=== PATIENT | female | born 1980 | race Caucasian/White ===

== ENCOUNTER 2017-01-20 13:54 | Emergency (ER) | payer MEDICAID, OTHER ==
[~2017-01-20] VITALS: Ht 162.6 cm; Wt 102.3 kg
[~2017-01-20 13:54] MED LIST: MECL25TA2 PO; ONDA4TAB35 PO; [UNRECOGNIZED DRUG - REMARK]
[2017-01-20 14:16] VITALS: Ht 162.6 cm; Wt 102.3 kg
[2017-01-20 16:48] LABS: URINE BLOOD (Dip) POC Negative (NEGATIVE)
[2017-01-20] MEDS ORDERED: PHEN-538 PO (17:16)
[2017-01-20] MEDS ORDERED: CEPH-443 PO (17:16)
--- NOTE | 2017-01-20 19:44 | ERD ---
ER Documentation Chief Complaint Date/Time DATE: 01/20/17 TIME: 19:41 Chief Complaint dysuria RLQ abd pain x 2 days HPI This is a 36-year-old female presenting to the emergency department complaining of left lower quadrant abdominal pain and painful urination for the past 2 days. Patient denies any fever. She denies any hematuria or vaginal discharge. Patient states her last menstrual period was about a couple weeks ago. Patient also complains of a lesion on her right eyelid with no pain inside the eye or on the outer eye. ROS All systems reviewed and are negative except as per history of present illness. Medications Home Meds Active Scripts Phenazopyridine Hcl* (Pyridium*) 200 Mg Tab, 200 MG PO TID Y for URINARY PAIN, # 10 TAB Prov:URIEL KRAUSE PA-C 01/20/17 Cephalexin* (Keflex*) 500 Mg Capsule, 500 MG PO BID for 10 Days, CAP Prov:URIEL KRAUSE PA-C 01/20/17 Meclizine Hcl* (Antivert*) 25 Mg Tablet, 25 MG PO Q6H Y for dizziness, #20 TAB Prov:JOSH WARREN MD 08/27/15 Ondansetron Hcl* (Zofran* ODT) 4 mg -ODT Tab.disper, 4 MG PO Q6 Y for NAUSEA AND /OR VOMITING, #30 TAB Prov:JOSH WARREN MD 08/27/15 Reported Medications [no new meds] No Conflict Check 06/28/13 Allergies Allergies: Coded Allergies: No Known Allergy (Unverified , 08/27/15) PMhx/Soc Medical and Surgical Hx: pt denies Medical Hx History of Surgery: Yes (C SECTION X4) Anesthesia Reaction: No Hx Neurological Disorder: No Hx Respiratory Disorders: No Hx Cardiac Disorders: No Hx Psychiatric Problems: No Hx Miscellaneous Medical Probl: No Hx Alcohol Use: No Hx Substance Use: No Hx Tobacco Use: No Physical Exam Vitals Vital Signs Date Time Temp Pulse Resp B/P Pulse Ox O2 Delivery O2 Flow Rate FiO2 01/20/17 14:16 98.3 87 20 119/75 98 Physical Exam GENERAL: well-developed/well-nourished, in no apparent distress, non-toxic appearing HENT: NC/AT, moist mucous membranes EYES: Conjunctiva normal, pupils equal reactive to light, extra walk was intact Small lesion noted on the upper eyelid region with no erythema or induration NECK: Supple, no lymphadenopathy PULM: CTA bilaterally, no rales, rhonchi, or wheezing heard CV: Normal S1S2, RRR, good capillary refill GI: Soft, non-distended, tender to palpation left pelvic region Normal bowel sounds, no masses or organomegaly felt on exam No gross peritonitis, no bruits Negative Rovsing, negative Aquino, negative McBurney's point, Negative CVAT BACK: No masses EXT: No clubbing, cyanosis, or edema NEURO: Alert and Orientated SKIN: Intact, normal turgor PSYCH: Normal mood and mentation Results 24 hrs Laboratory Tests Test 01/20/17 16:47 Bedside Urine Blood Negative Bedside Urine Glucose (UA) Negative Bedside Urine Ketones (LAB) Negative Bedside Urine Leukocyte Esterase (L 1+ Bedside Urine Nitrite (LAB) Positive Bedside Urine Protein (LAB) Negative Bedside Urine pH (LAB) 6.5 Procedures/MDM This is a 36-year-old female presenting to the emergency department complaining of left pelvic pain and dysuria for the past 2 days which is likely due to urinary tract infection. On examination patient did not have any CVA tenderness , she had no fever she appears well and did not seem to be in significant pain. Low suspicion for nephrolithiasis or pyelonephritis. Patient also is complaining of a lesion on her upper eyelid which is likely due to a hordeolum versus chalazion, did not seem to be any evidence of periorbital or orbital tinnitus. No evidence of conjunctivitis. Patient should be benefiting from warm compresses at this time topical antibiotics are necessary. However I discussed the patient to return the ER for any worsening signs or symptoms are not improving as expected. Patient understands and agrees with this plan; prescription for Keflex was given. Departure Diagnosis: Primary Impression: Dysuria Condition: Stable Patient Instructions: Understanding Urinary Tract Infections (UTIs), When Your Child Has a Stye Referrals: NO PRIMARY,CARE PHYSICIAN (PCP) Additional Instructions: Visite a bhat moa granger para un EXAMEN.Regrese a estas instalaciones si no se mejora allie esperbamos o allie le dijimos. Nichols toda la medicina gabriella y allie se le indic. Regrese a estas instalaciones si no se mejora allie esperbamos o allie le dijimos. URIEL KRAUSE PA-C Jan 20, 2017 19:44
== END 2017-01-20 17:31 | disposition home or self-care (01) ==
LOC: FTE 13:54
DX: R30.0 Dysuria (principal); R10.2 Pelvic and perineal pain
CPT/HCPCS: 81003; 99283

== ENCOUNTER 2017-09-02 09:11 | Emergency (ER) | payer MEDICAID ==
[~2017-09-02] VITALS: Ht 152.4 cm; Wt 107.5 kg
[~2017-09-02 09:11] MED LIST changes: +CEPH-443 PO; +PHEN-538 PO
[2017-09-02 09:23] VITALS: Ht 152.4 cm; Wt 107.5 kg
[2017-09-02] MEDS ORDERED: KETOROLAC 30 MG INJ IV STA (09:53)
[2017-09-02] MEDS ORDERED: SOD CHLORIDE 0.9% 1,000 ML IV STA (09:53)
[2017-09-02 10:14] LABS: URINE BLOOD (Dip) POC 2+ (NEGATIVE)
[2017-09-02 10:20] LABS: BASOPHILS % 0.3 % (0.0-2.0); EOSINOPHILS # 0.2 10^3/ul (0.0-0.5); EOSINOPHILS % 2.3 % (0.0-7.0); HEMATOCRIT 32.8 % (37.0-47.0); HEMOGLOBIN 11.1 g/dl (12.0-16.0); LYMPHOCYTES # 1.8 10^3/ul (0.8-2.9); LYMPHOCYTES % 26.9 % (15.0-51.0); MEAN CORPUSCULAR HEMOGLOBIN 27.2 pg (29.0-33.0); MEAN CORPUSCULAR HGB CONC 33.8 g/dl (32.0-37.0); MEAN CORPUSCULAR VOLUME 80.4 fl (82.0-101.0); MEAN PLATELET VOLUME 9.6 fl (7.4-10.4); MONOCYTE # 0.4 10^3/ul (0.3-0.9); MONOCYTES % 6.7 % (0.0-11.0); NEUTROPHIL # 4.2 10^3/ul (1.6-7.5); NEUTROPHILS % 63.3 % (39.0-77.0); PLATELET COUNT 252 10^3/UL (140-415); RED BLOOD COUNT 4.08 10^6/ul (4.20-5.40); RED CELL DISTRIBUTION WIDTH 14.8 % (11.5-14.5); WHITE BLOOD COUNT 6.6 10^3/ul (4.8-10.8)
[2017-09-02 10:38] LABS: CALCIUM 8.9 mg/dl (8.4-10.2); CREATININE 0.73 mg/dl (0.44-1.00); POTASSIUM 3.8 mmol/L (3.5-5.1)
[2017-09-02] MEDS ORDERED: MEDR5TAB PO (11:42)
[2017-09-02 12:02] VITALS: BP 110/66; PULSE 84; RESP 18
--- NOTE | 2017-09-02 12:38 | ERD ---
ER Documentation Chief Complaint Chief Complaint HEAVY VAGINAL BLEEDING X3 MONTH HPI This is a 36 year old female presents to ER with vaginal bleeding x 3 months. Patient states she has had varying degrees of vaginal bleeding per day. States some days she will have light spotting other day she will have moderate to heavy menstrual flow. Patient denies any clots or tissue passed. She denies being . Patient is having intermittent lower pelvic pain. Patient states pain is 10/10 and describes pain as cramping. Patient states she went to an outside facility at the beginning of August and has a follow-up appointment in October with [facility]. Patient states that she cannot wait any longer due to pain and bleeding. Patient did not take any medications for this. ROS All systems reviewed and are negative except as per history of present illness. Medications Home Meds Active Scripts Medroxyprogesterone Acetate* (Provera*) 5 Mg Tablet, 5 MG PO DAILY for 5 Days, TAB Prov:DOMINIK REGALADO NP 09/02/17 Phenazopyridine Hcl* (Pyridium*) 200 Mg Tab, 200 MG PO TID Y for URINARY PAIN, # 10 TAB Prov:URIEL KRAUSE PA-C 01/20/17 Cephalexin* (Keflex*) 500 Mg Capsule, 500 MG PO BID for 10 Days, CAP Prov:URIEL KRAUSE PA-C 01/20/17 Meclizine Hcl* (Antivert*) 25 Mg Tablet, 25 MG PO Q6H Y for dizziness, #20 TAB Prov:JOSH WARREN MD 08/27/15 Ondansetron Hcl* (Zofran* ODT) 4 mg -ODT Tab.disper, 4 MG PO Q6 Y for NAUSEA AND /OR VOMITING, #30 TAB Prov:JOSH WARREN MD 08/27/15 Reported Medications [no new meds] No Conflict Check 06/28/13 Allergies Allergies: Coded Allergies: No Known Allergy (Unverified , 08/27/15) PMhx/Soc History of Surgery: Yes (C SECTION X4) Anesthesia Reaction: No Hx Neurological Disorder: No Hx Respiratory Disorders: No Hx Cardiac Disorders: No Hx Psychiatric Problems: No Hx Miscellaneous Medical Probl: No Hx Alcohol Use: No Hx Substance Use: No Hx Tobacco Use: No Smoking Status: Never smoker Physical Exam Vitals Vital Signs Date Time Temp Pulse Resp B/P Pulse Ox O2 Delivery O2 Flow Rate FiO2 09/02/17 12:02 84 18 110/66 98 Room Air 09/02/17 09:23 98.4 90 18 119/61 99 Physical Exam Const: No acute distress, alert Head: Atraumatic Eyes: Normal Conjunctiva ENT: Normal External Ears, Nose and Mouth. Neck: Full range of motion..~ No meningismus. Resp: Clear to auscultation bilaterally Cardio: Regular rate and rhythm, no murmurs Abd: Soft, non tender, non distended. Normal bowel sounds Skin: No petechiae or rashes Back: No midline or flank tenderness Ext: No cyanosis, or edema Neur: Awake and alert Psych: Normal Mood and Affect Result Diagram: 09/02/17 1005 09/02/17 1005 Results 24 hrs Laboratory Tests Test 09/02/17 10:05 09/02/17 10:12 White Blood Count 6.610^3/ul Red Blood Count 4.0810^6/ul Hemoglobin 11.1g/dl Hematocrit 32.8% Mean Corpuscular Volume 80.4fl Mean Corpuscular Hemoglobin 27.2pg Mean Corpuscular Hemoglobin Concent 33.8g/dl Red Cell Distribution Width 14.8% Platelet Count 11153^3/UL Mean Platelet Volume 9.6fl Neutrophils % 63.3% Lymphocytes % 26.9% Monocytes % 6.7% Eosinophils % 2.3% Basophils % 0.3% Nucleated Red Blood Cells % 0.0/100WBC Neutrophils # 4.210^3/ul Lymphocytes # 1.810^3/ul Monocytes # 0.410^3/ul Eosinophils # 0.210^3/ul Basophils # 0.010^3/ul Nucleated Red Blood Cells # 0.010^3/ul Sodium Level 145mmol/L Potassium Level 3.8mmol/L Chloride Level 107mmol/L Carbon Dioxide Level 26mmol/L Anion Gap 16 Blood Urea Nitrogen 8mg/dl Creatinine 0.73mg/dl Glucose Level 123mg/dl Calcium Level 8.9mg/dl Bedside Urine pH (LAB) 5.5 Bedside Urine Protein (LAB) Negative Bedside Urine Glucose (UA) Negative Bedside Urine Ketones (LAB) Negative Bedside Urine Blood 2+ Bedside Urine Nitrite (LAB) Negative Bedside Urine Leukocyte Esterase (L Negative Current Medications Medications (Trade) Dose Ordered Sig/Shemar Route PRN Reason Start Time Stop Time Status Last Admin Dose Admin Sodium Chloride (NS) 1,000 ml @ 1,000 mls/hr Q1H STAT IV 09/02/17 09:53 09/02/17 10:52 DC 09/02/17 10:08 Ketorolac Tromethamine (Toradol) 30 mg ONCE STAT IV 09/02/17 09:53 09/02/17 10:00 DC 09/02/17 10:08 Procedures/MDM MDM: This is a 36-year-old female presenting to emergency department for intermittent vaginal bleeding 3 months. Patient is afebrile vital signs are stable. IV access obtained and labs drawn. Patient given IV Toradol 30 mg. Patient also given 1 L IV fluid bolus of normal saline. CBC shows no significant anemia or infection.+Hemoglobin 11.1 and hematocrit 32.8. No indication for blood transfusion at this time. BMP shows no significant electrolyte imbalance. Normal creatinine BUN. Normal glucose. Urine dip shows 2+ blood otherwise negative. Pelvic ultrasound reviewed by radiologist as unremarkable with small amount of free fluid. Upon reassessment, patient states pain has improved. Patient remains alert and stable. Vital signs are stable. Differential diagnosis includes but not limited to ectopic , subchorionic hemorrhage, ruptured ovarian cyst, UTI, fibroid, dysfunctional uterine bleeding or pyelonephritis. Patient diagnosis is likely dysfunctional uterine bleeding patient will be given prescription for Provera 5 mg Patient is appropriate for outpatient management. Patient will be given prescription for Provera 5 mg daily 5 days. Instructed patient to follow-up with [facility] in the next 2-3 days for reassessment and additional management. Return to ED sooner for any high fever, chest pain, difficulty breathing, shortness breath, wheezing, vomiting, diarrhea, abdominal pain or any new or worsening symptoms. Patient verbalizes understanding. All questions answered at discharge. Disclaimer: Inadvertent spelling and grammatical errors are likely due to EHR/ dictation software use and do not reflect on the overall quality of patient care. Also, please note that the electronic time recorded on this note does not necessarily reflect the actual time of the patient encounter. Departure Diagnosis: Primary Impression: Dysfunctional uterine bleeding Condition: Stable Patient Instructions: Dysfunctional Uterine Bleeding Referrals: [facility] Usted se herrmann hecho un examen mdico de control que le indica que no est en leon condicin que requiera tratamiento urgente en el Departamento de Emergencia. Un estudio ms profundo y el tratamiento de bhat condicin pueden esperar sin ningn riesgo hasta que usted sea atendida/o en el consultorio de bhat mdico o leon cl reinier. Es responsabilidad suya arreglar leon maikol para el seguimiento del arina. MANEJO DE CONDICIONES NO URGENTES EN EL FUTURO 1) Si usted tiene un mdico de atencin primaria: Usted debera llamar a bhat mdico de atencin primaria antes de venir al departamento de emergencia. Despus de las horas de consultorio, bhat doctor o bhat asociado/a est disponible por telfono. El mdico o enfermero de kilo en el servicio telefnico puede asesorarle por moise medio para atender el problema, o arina contrario se puede programar leon maikol. 2) Si usted no tiene un mdico de atencin primaria: Llame al mdico o clnica de referencia que aparece abajo rashi las horas de consultorio para hacer leon maikol para que le vean. CLINICAS: [facility] [phone] [facility] [phone] [address] [facility] [phone] [address] [facility]. [facility] [phone] [facility]. [facility] [phone] [address] [facility]. [phone] [address] . [facility] () Usted se herrmann hecho un examen mdico de control que le indica que no est en leon condicin que requiera tratamiento urgente en el Departamento de Emergencia. Un estudio ms profundo y el tratamiento de bhat condicin pueden esperar sin ningn riesgo hasta que usted sea atendida/o en el consultorio de bhat mdico o leon cl reinier. Es responsabilidad suya arreglar leon maikol para el seguimiento del arina. MANEJO DE CONDICIONES NO URGENTES EN EL FUTURO 1) Si usted tiene un mdico de atencin primaria: Usted debera llamar a bhat mdico de atencin primaria antes de venir al departamento de emergencia. Despus de las horas de consultorio, bhat doctor o bhat asociado/a est disponible por telfono. El mdico o enfermero de kilo en el servicio telefnico puede asesorarle por moise medio para atender el problema, o arina contrario se puede programar leon maikol. 2) Si usted no tiene un mdico de atencin primaria: Llame al mdico o condado institucions de referencia que aparece abajo rashi las horas de consultorio para hacer leon maikol para que le vean. SI USTED NO PUEDE PAGAR PARA KEIVN UN MEDICO puede ir a: [facility] [address] [place] [address] [facility] [address] [place] [address] [facility] [address] [place] [address] [facility] [address] [place], [place] [id number] [facility] [employer] [place] [address] [facility] [address] [place] [address] OFFICE FAX HIGINIO DICK [address] [place] [address] [address] [place] [facility] [address] [place] [address] DR BHAGAT, HESHMAT [address] [facility], [address], [place] [address] [address] VILLATORO, [facility] [address] [facility], [place] [address] [facility] [address] [place] [address] [phone] [facility], [facility] [address] - DR MORENO, GENE [address], [place] [address] DR DUMONT, TEQUILA [address] [facility]. [address], [place] [address] DR RUGGIERO, FARID [address] [place], [place] [id number] Additional Instructions: Seguimiento con [facility] REPA[facility]MAN en las prximas 24-48 horas para la revaluacin y la gerencia adicional. Vuelva a Ed para cualquier fiebre melo, dolor en el pecho, dificultad para respirar, respiracin entrecortada, sibilancias, vmitos, diarrea, dolor abdominal o cualquier sntoma nuevo o empeoramiento. DOMINIK REGALADO NP Sep 02, 2017 12:38
--- NOTE | 2017-09-02 15:17 | RADRPT ---
PROCEDURE: US Pelvis. CLINICAL INDICATION: Pelvic pain and vaginal bleeding for 3 months. TECHNIQUE: The pelvis was evaluated with transabdominal and transvaginal sonography in the axial a nd sagittal planes. COMPARISON: No prior study is available for comparison. FINDINGS: Uterus: 9.1 x 4.9 x 5.5 cm. Endometrium: A small amount of fluid is present in the endometrial canal. There is also a 0.4 cm gonzalez cification within the endometrial canal. The endometrial thickness is 14.8 mm. Right ovary: 2.3 x 1.1 x 1.5 cm. Left ovary: 2.6 x 1.5 x 1.5 cm. Uterine masses: None. Ovarian masses: None. Color Doppler and pulsed Doppler sonography demonstrate normal flow to the ova ralph. Other pelvic masses: None. Free fluid: None. IMPRESSION: 1. Small amount of fluid in the endometrial canal and a 0.4 cm calcification in the endometrial can al. Follow-up ultrasound advised. 2. Otherwise unremarkable study. RPTAT: QQ .Seth Yi MD, Date Time Electronically viewed and signed by .Seth Yi MD, on 09/02/2017 15:17 .R/
== END 2017-09-02 12:02 | disposition home or self-care (01) ==
LOC: FTE 09:11
DX: N93.8 Other specified abnormal uterine and vaginal bleeding (principal); R10.2 Pelvic and perineal pain
CPT/HCPCS: 36415; 76830; 76856; 80048; 81003; 85025; 96374; J1885; J7030; Z7502

== ENCOUNTER 2018-03-15 08:34 | Emergency (ER) | END 2018-03-15 11:16 | disposition home or self-care (01) ==

== ENCOUNTER 2019-07-01 15:10 | Emergency (ER) | payer MEDICAID ==
[~2019-07-01] VITALS: Ht 162.6 cm; Wt 104.4 kg
[~2019-07-01 15:10] MED LIST changes: +ACET500C5 PO; +BISM262O23 PO; +FLUC150T PO; +HYDR-4011 PO; +IBUP-1542 PO; +MEDR5TAB PO; +NAPR-985 PO; +NITR-58 PO; +ONDA4TAB8 PO; +ONDA8TAB14 PO
[2019-07-01 15:16] VITALS: BP 119/66; PULSE 79; RESP 18; Ht 162.6 cm; Wt 104.4 kg
[2019-07-01] MEDS ORDERED: IBUPROFEN 600 MG TAB PO ONE (16:00)
== END 2019-07-01 17:33 | disposition home or self-care (01) ==
LOC: FTE 15:10
DX: N39.0 Urinary tract infection, site not specified (principal); N83.202 Unspecified ovarian cyst, left side; B37.3 Candidiasis of vulva and vagina
CPT/HCPCS: 76830; 76856; 81003; 81025; Z7502; Z7610

== ENCOUNTER 2019-07-04 08:52 | Emergency (ER) | payer MEDICAID ==
[~2019-07-04] VITALS: Wt 80.0 kg
[2019-07-04] MEDS ORDERED: SOD CHLORIDE 0.9% 1,000 ML IV STA (10:01)
[2019-07-04] MEDS ORDERED: morphine 2 MG INJ IV STA (10:01)
[2019-07-04] MEDS ORDERED: ONDANSETRON 4 MG INJ IV STA (10:01)
[2019-07-04] MEDS ORDERED: KETOROLAC 30 MG INJ IV STA (10:41)
[2019-07-04 12:38] VITALS: BP 109/65; PULSE 73; RESP 16
== END 2019-07-04 12:39 | disposition home or self-care (01) ==
LOC: FTE 08:52
DX: K85.90 Acute pancreatitis without necrosis or infection, unspecified (principal)
CPT/HCPCS: 36415; 71045; 74176; 76705; 80053; 81001; 81025; 83690; 85025; 96361; 96374; 96375; J1885; J2405; J7030; Z7502